=== PATIENT | female | born 1990 | race Caucasian/White ===

== ENCOUNTER 2017-01-23 10:36 | Emergency (ER) | payer OTHER ==
--- NOTE | 2017-01-23 11:19 | EDPHY ---
HPI/HX/ROS/PE/MDM Narrative: CHIEF COMPLAINT: Vomiting, abdominal pain. HPI: The patient is a 26-year-old female with a history of cyclic vomiting syndrome who presents with vomiting since 0700 this morning. She admits associated non-radiating LLQ pain. The pain is severe in nature. The symptoms are similar to her previous episodes of cyclic vomiting. She denies fever, diarrhea, or other complaints. She has been treated successfully in the past with Haldol. REVIEW OF SYSTEMS: Aside from elements discussed in the HPI, a comprehensive 10-point review of systems was reviewed and is negative. PMH: Tonsillectomy, arm fracture. SOCIAL HISTORY: Here with mother. PHYSICAL EXAM: General: Patient is alert, writhing around on bed. ENT: Eyes are normal to inspection. ENT inspection normal. Neck: Normal inspection. Full range of motion. Respiratory: No respiratory distress. Breath sounds normal bilaterally. Cardiovascular: Regular rate and rhythm. Strong peripheral pulses. Abdomen: Diffuse abdominal tenderness, uncooperative on exam. There are no peritoneal signs. There are normal bowel sounds. Back: Normal to inspection. No tenderness to palpation. Skin: Normal color. No rash. Warm and dry. Extremities: Normal appearance. Full range of motion. Neuro: Oriented x3. Normal motor function. Normal sensory function. Portions of this note were transcribed by an ED scribe. I personally performed the history, physical exam, and medical decision making; and confirm the accuracy of the information in the transcribed note. ED Course: 26-year-old female with a history of cyclic vomiting presents with vomiting and LLQ abdominal pain since 0700 this morning. She has no fever, diarrhea, or other complaints. Vitals are stable. An IV was established and labs ordered. On exam she is diffusely tender but is uncooperative and writhing around on the bed. Abdomen/pelvis CT ordered. 1L IV saline, 4mg IV Zofran, .5mg IV Dilaudid, 5mg IV Haldol administered. WBC elevated at 13.71. 1405: Reassessed patient. Discussed results of workup. She is feeling much better and her pain is gone. She has declined pelvic ultrasound. I feel she is safe for discharge at this time. She has been given gastroenterology follow up. MDM: This patient presents with severe vomiting and abdominal pain in the setting of what appears to be likely cyclical vomiting syndrome, although the patient has not received a formal diagnosis of this. We performed an extensive workup including lab work and CT scan of the abdomen and pelvis, which are essentially negative for acute findings other than some mild neuritis. I see no evidence of appendicitis, diverticulitis, bowel obstruction, bowel perforation. The patient is not . The patient was treated with IV fluids, pain medicine and IV Haldol. On re-evaluation, she states her pain is gone and she feels much better. I discussed testing with her and her mother and she is comfortable with the plan to refuse further testing including pelvic ultrasound and to go home. I strongly encouraged them to follow up with a adobe maker and have given them a referral to do so. We discussed strict return precautions. - Data Points Imaging Results: Imaging Impressions Abdomen CT 01/23/17 12:12 Impression: 1. Apparent wall thickening of jejunum with mild mesenteric stranding most likely related to enteritis. 2. Bladder wall thickening likely related to underdistention. 3. Additional findings as above. Findings discussed with Judah Rao MD 01/23/2017 at 1317 hours. Laboratory Results: Laboratory Results 01/23/17 11:00 01/23/17 11:00 01/23/17 01/23/17 01/23/17 11:00 11:00 11:00 WBC 13.71 10^3/uL H 10^3/uL (3.80-9.50) RBC 4.94 10^6/uL 10^6/uL (4.18-5.33) Hgb 14.5 g/dL g/dL (12.6-16.3) Hct 42.8 % % (38.0-47.0) MCV 86.6 fL fL (81.5-99.8) MCH 29.4 pg pg (27.9-34.1) MCHC 33.9 g/dL g/dL (32.4-36.7) RDW 12.3 % % (11.5-15.2) Plt Count 215 10^3/uL 10^3/uL (150-400) MPV 11.6 fL fL (8.7-11.7) Neut % (Auto) 89.8 % H % (39.3-74.2) Lymph % (Auto) 5.1 % L % (15.0-45.0) Mcmullen % (Auto) 3.8 % L % (4.5-13.0) Eos % (Auto) 0.7 % % (0.6-7.6) Baso % (Auto) 0.2 % L % (0.3-1.7) Nucleat RBC Rel Count 0.0 % % (0.0-0.2) Absolute Neuts (auto) 12.31 10^3/uL H 10^3/uL (1.70-6.50) Absolute Lymphs (auto) 0.70 10^3/uL L 10^3/uL (1.00-3.00) Absolute Monos (auto) 0.52 10^3/uL 10^3/uL (0.30-0.80) Absolute Eos (auto) 0.09 10^3/uL 10^3/uL (0.03-0.40) Absolute Basos (auto) 0.03 10^3/uL 10^3/uL (0.02-0.10) Absolute Nucleated RBC 0.00 10^3/uL 10^3/uL (0-0.01) Immature Gran % 0.4 % % (0.0-1.1) Immature Gran # 0.06 10^3/uL 10^3/uL (0.00-0.10) Sodium 142 mEq/L mEq/L (134-144) Potassium 4.1 mEq/L mEq/L (3.5-5.2) Chloride 108 mEq/L mEq/L (97-110) Carbon Dioxide 21 mEq/l L mEq/l (22-31) Anion Gap 13 mEq/L mEq/L (8-16) BUN 12 mg/dL mg/dL (7-23) Creatinine 0.8 mg/dL mg/dL (0.6-1.0) Estimated GFR > 60 Glucose 115 mg/dL H mg/dL (70-100) Calcium 9.7 mg/dL mg/dL (8.5-10.4) Total Bilirubin 0.6 mg/dL mg/dL (0.1-1.4) Conjugated Bilirubin 0.4 mg/dL mg/dL (0.0-0.5) Unconjugated Bilirubin 0.2 mg/dL mg/dL (0.0-1.1) AST 71 IU/L H IU/L (14-46) ALT 45 IU/L IU/L (9-52) Alkaline Phosphatase 58 IU/L IU/L (38-126) Total Protein 7.5 g/dL g/dL (6.3-8.2) Albumin 4.7 g/dL g/dL (3.5-5.0) Lipase 251.0 IU/L IU/L (23-300) Beta HCG, Qual NEGATIVE Medications Given: Discontinued Medications Haloperidol Lactate (Haldol Injection) 5 mg IV EDNOW ONE Stop: 01/23/17 11:56 Last Admin: 01/23/17 12:02 Dose: 5 mg Hydromorphone HCl (Dilaudid) 0.5 mg IVP EDNOW ONE Stop: 01/23/17 12:13 Last Admin: 01/23/17 12:33 Dose: 0.5 mg Sodium Chloride (Ns) 1,000 mls @ 0 mls/hr IV ONCE ONE PRN Reason: Wide Open Stop: 01/23/17 12:05 Last Admin: 01/23/17 12:05 Dose: 1,000 mls Ondansetron HCl (Zofran) 4 mg IVP EDNOW ONE Stop: 01/23/17 12:04 Last Admin: 01/23/17 12:05 Dose: 4 mg General Time Seen by Provider: 01/23/17 11:18 Initial Vital Signs: Initial Vital Signs Temperature (C) 36.7 C 01/23/17 10:42 Heart Rate 65 01/23/17 10:42 Respiratory Rate 18 01/23/17 10:42 Blood Pressure 131/76 H 01/23/17 10:42 O2 Sat (%) 97 01/23/17 10:42 O2 Delivery Mode Room Air Allergies/Adverse Reactions: cefaclor [From [facility]] Allergy (Verified 01/23/17 10:41) Sulfa (Sulfonamide Antibiotics) Allergy (Verified 01/23/17 10:41) Home Medications: Medication Instructions Recorded [facility] 07/04/16 Ondansetron Odt [Zofran Odt] 4 mg PO Q6-8PRN PRN #6 tab 07/05/16 Departure - Departure Disposition: Home, Routine, Self-Care Clinical Impression: Nausea and vomiting Qualifiers: Vomiting type: cyclical vomiting Vomiting Intractability: non-intractable Qualified Code(s): G43.A0 - Cyclical vomiting, not intractable Abdominal pain Qualifiers: Abdominal location: left lower quadrant Qualified Code(s): R10.32 - Left lower quadrant pain Condition: Good Instructions: Acute Nausea and Vomiting (ED), Abdominal Pain (ED) Additional Instructions: Call Dr. Escalona, gastroenterology, today to set up a follow up appointment. Drink only clear fluids for the next 24 hours. Advance diet slowly as tolerable. Return to the emergency department for any serious worsening of condition. Referrals: Sam Escalona MD [[facility] Primary Care Provider] - As per Instructions ALBERTA CURTIS [Primary Care Provider] - As per Instructions Report Scribed for: Judah Rao Report Scribed by: Fili Duran Date of Report: 01/23/17 Time of Report: 11:19
[2017-01-23 11:24] LABS: % IMMATURE GRANULYOCYTES 0.4 % (0.0-1.1); ABSOLUTE IMMATURE GRANULOCYTES 0.06 10^3/uL (0.00-0.10); ADD DIFF? NO; ADD MORPH? NO; ADD SCAN? NO; ATYPICAL LYMPHOCYTE FLAG 0 (0-99); FRAGMENT RBC FLAG 0 (0-99); HEMATOCRIT 42.8 % (38.0-47.0); HEMOGLOBIN 14.5 g/dL (12.6-16.3); LEFT SHIFT FLG 0 (0-99); LIPEMIA HEMOLYSIS FLAG 90 (0-99); MEAN CELL HEMOGLOBIN 29.4 pg (27.9-34.1); MEAN CELL HEMOGLOBIN CONCENTR. 33.9 g/dL (32.4-36.7); MEAN CELL VOLUME 86.6 fL (81.5-99.8); MEAN PLATELET VOLUME 11.6 fL (8.7-11.7); PLATELET CLUMPS FLAG 0 (0-99); PLATELET COUNT 215 10^3/uL (150-400); RED BLOOD CELL COUNT 4.94 10^6/uL (4.18-5.33); RED CELL DISTRIBUTION WIDTH 12.3 % (11.5-15.2)
[2017-01-23 11:34] LABS: ALANINE AMINOTRANSFERASE 45 IU/L (9-52); ALBUMIN 4.7 g/dL (3.5-5.0); ALKALINE PHOSPHATASE 58 IU/L (38-126); ANION GAP 13 mEq/L (8-16); ASPARTATE AMINOTRANSFERASE 71 IU/L (14-46); BILIRUBIN,TOTAL 0.6 mg/dL (0.1-1.4); BILIRUBIN-CONJUGATED 0.4 mg/dL (0.0-0.5); BILIRUBIN-UNCONJUGATED 0.2 mg/dL (0.0-1.1); CALCIUM 9.7 mg/dL (8.5-10.4); CARBON DIOXIDE 21 mEq/l (22-31); CHLORIDE 108 mEq/L (97-110); CREATININE 0.8 mg/dL (0.6-1.0); GLOMERULAR FILTRATION RATE > 60; GLUCOSE 115 mg/dL (70-100); POTASSIUM 4.1 mEq/L (3.5-5.2); SODIUM 142 mEq/L (134-144); TOTAL PROTEIN 7.5 g/dL (6.3-8.2)
[2017-01-23] MEDS ORDERED: ONDANSETRON 4 MG/2 ML VIAL ONE (11:43)
[2017-01-23] MEDS ORDERED: HALOPERIDOL LACT 5 MG/ML INJ IV ONE (11:55)
[2017-01-23] MEDS ORDERED: ONDANSETRON 4 MG/2 ML VIAL IVP ONE (12:03)
[2017-01-23] MEDS ORDERED: NS 1,000 ML IV ONE (12:04)
[2017-01-23 12:05] VITALS: TEMP 98.2
[2017-01-23] MEDS ORDERED: HYDROmorphONE/DILAUDID 1 MG/ML SYR IVP ONE (12:12)
[2017-01-23] MEDS ORDERED: IOPAMIDOL (ISOVUE-300) 100 ML BTL IV ONE (12:35)
[2017-01-23 14:33] VITALS: BP 95/67; PULSE 74; RESP 18; O2SAT 95
== END 2017-01-23 14:35 | disposition home or self-care (01) ==
DX: R10.32 Left lower quadrant pain (principal); G43.A0 Cyclical vomiting, in migraine, not intractable
CPT/HCPCS: 96374; J1170; J2405; Q9967

== ENCOUNTER 2017-03-17 17:46 | Emergency (ER) | payer OTHER ==
[2017-03-17 17:52] VITALS: RESP 16
[2017-03-17] MEDS ORDERED: ONDANSETRON 4 MG/2 ML VIAL ONE (18:21)
[2017-03-17] MEDS ORDERED: ONDANSETRON 4 MG/2 ML VIAL IVP ONE (18:27)
[2017-03-17] MEDS ORDERED: NS 1,000 ML IV ONE (18:27)
[2017-03-17 18:32] LABS: % IMMATURE GRANULYOCYTES 0.6 % (0.0-1.1); ABSOLUTE IMMATURE GRANULOCYTES 0.11 10^3/uL (0.00-0.10); ADD DIFF? NO; ADD MORPH? NO; ADD SCAN? NO; ATYPICAL LYMPHOCYTE FLAG 0 (0-99); FRAGMENT RBC FLAG 0 (0-99); HEMATOCRIT 45.4 % (38.0-47.0); LEFT SHIFT FLG 0 (0-99); LIPEMIA HEMOLYSIS FLAG 80 (0-99); MEAN CELL HEMOGLOBIN 29.4 pg (27.9-34.1); MEAN CELL VOLUME 88.8 fL (81.5-99.8); MEAN PLATELET VOLUME 11.4 fL (8.7-11.7); PLATELET CLUMPS FLAG 0 (0-99); PLATELET COUNT 279 10^3/uL (150-400); RED BLOOD CELL COUNT 5.11 10^6/uL (4.18-5.33); RED CELL DISTRIBUTION WIDTH 13.1 % (11.5-15.2)
[2017-03-17] MEDS ORDERED: HALOPERIDOL LACT 5 MG/ML INJ IVP ONE (18:39)
--- NOTE | 2017-03-17 18:39 | EDPHY ---
HPI/HX/ROS/PE/MDM Narrative: CHIEF COMPLAINT: Nausea, vomiting. HISTORY OF PRESENT ILLNESS: The patient is a 26-year-old female with history of cyclic vomiting, presenting with nausea and vomiting that started last night. She grilled steak and vegetables yesterday evening and began vomiting after eating. Her friend who ate the same food did not vomit. Patient has continued to vomit since yesterday evening. She has not been able to keep down food or fluids. She took Zofran around 9:30 a.m. this morning and was able to go back to sleep without vomting. After waking up and trying to eat symptoms resurfaced. Patient has associated abdominal cramping. She developed diarrhea as well today. The patient continues to smoke marijuana daily. No fever, chills , chest pain, shortness of breath, palpitations, urinary complaints, headache, lightheadedness. LMP was a few days ago. Patient is not on any form of control. REVIEW OF SYSTEMS: Aside from elements discussed in the HPI, a comprehensive 10-point review of systems was reviewed and is negative. PAST MEDICAL HISTORY: Cyclic vomiting. SOCIAL HISTORY: Marijuana use. Alcohol use. VITAL SIGNS: Reviewed by me GENERAL: Well-developed, well-nourished, resting comfortably in no respiratory distress. HEENT: Atraumatic. Eyes: No icterus, no injection. Mouth: moist mucous membranes. No erythema or lesions. Neck: supple with no adenopathy. LUNGS: Clear to auscultation bilaterally, no wheezes, rhonchi or rales. CARDIAC: Regular rate and rhythm, no rubs, murmurs or gallops. ABDOMEN: Soft, left lower quadrant tenderness BACK: No CVA tenderness. EXTREMITIES: No trauma. No edema. Range of motion is normal throughout. NEURO: Alert and oriented, grossly nonfocal. SKIN: Warm and dry, no rash. PSYCHIATRIC: Normal mentation, no agitation. Portions of this note were transcribed by a medical support assistant. I personally performed a history, physical exam, medical decision making, and confirmed accuracy of information the transcribed note. ED Course: Patient with history of possible cyclic vomiting related to MJ use, presents with 24 hours of nausea and vomiting. Patient received 1L IV fluids and 4mg Zofran. She has not vomited in the ED. Plan to treat abdominal pain with IV Benadryl, Reglan, and Haldol. I ordered lab work. Plan to reevaluate patient after medications. CBC notable for elevated WBC at 19, and CO2 of 15. Patient underwent CT scanning to evaluate for intraabdominal causes of severe dehydration and leukocytosis. CT abdomen/pelvis is normal except for ovarian cyst. Patient much improved following 2 liters of NS. Tolerating juice. Will dc with phenergan. Advised regarding ongoing marijuana use and possible hyperemesis related to marijuana. MDM: Diff dx of patient nausea and vomiting considered including cyclic vomiting, cannibus hyperemesis syndrome, viral infection, electrolyte abnormalities, gastritis, gastroenteritis, colitis, enteritis, , infection, bowel obstruction. - Data Points Imaging: Discussed imaging studies w/ nut process helper Radiologist Laboratory Results: Laboratory Results 03/17/17 18:25 03/17/17 18:25 Medications Given: Discontinued Medications Diphenhydramine HCl (Benadryl Injection) 25 mg IVP EDNOW ONE Stop: 03/17/17 18:46 Last Admin: 03/17/17 19:10 Dose: 25 mg Haloperidol Lactate (Haldol Injection) 2.5 mg IVP EDNOW ONE Stop: 03/17/17 18:40 Last Admin: 03/17/17 19:10 Dose: 2.5 mg Sodium Chloride (Ns) 1,000 mls @ 0 mls/hr IV ONCE ONE PRN Reason: Wide Open Stop: 03/17/17 18:28 Last Admin: 03/17/17 18:27 Dose: 1,000 mls Metoclopramide HCl (Reglan Injection) 10 mg IVP EDNOW ONE Stop: 03/17/17 18:46 Last Admin: 03/17/17 19:10 Dose: 10 mg Ondansetron HCl (Zofran) 4 mg IVP EDNOW ONE Stop: 03/17/17 18:28 Last Admin: 03/17/17 18:28 Dose: 4 mg General Time Seen by Provider: 03/17/17 18:36 Initial Vital Signs: Initial Vital Signs Temperature (C) 36.9 C 03/17/17 17:49 Heart Rate 82 03/17/17 17:49 Respiratory Rate 16 03/17/17 17:49 Blood Pressure 106/78 03/17/17 17:49 O2 Sat (%) 97 03/17/17 17:49 O2 Delivery Mode Nasal Cannula O2 (L/minute) 2 Allergies/Adverse Reactions: cefaclor [From [facility]] Allergy (Verified 01/23/17 10:41) Sulfa (Sulfonamide Antibiotics) Allergy (Verified 01/23/17 10:41) Home Medications: Medication Instructions Recorded [facility] 07/04/16 Ondansetron Odt [Zofran Odt] 4 mg PO Q6-8PRN PRN #6 tab 07/05/16 Promethazine HCl [Phenergan 12.5mg 12.5 mg PO Q8 PRN #10 tablet 03/17/17 tab] Departure - Departure Disposition: Home, Routine, Self-Care Clinical Impression: Nausea and vomiting Qualifiers: Vomiting type: unspecified Vomiting Intractability: non-intractable Qualified Code(s): R11.2 - Nausea with vomiting, unspecified Condition: Good Instructions: Acute Nausea and Vomiting (ED) Additional Instructions: For your vomiting, I suggested you start with a bland diet and advance as tolerated. This means start with clear liquids such as water, Gatorade, juice, flat non- caffeinated soda. If you tolerate clear liquids, then you may add bland foods such as bananas, rice, or toast. If you do not have any worsening of your symptoms, you may begin to resume a regular diet. Take Phenergan as directed for recurrent nausea and vomiting. Referrals: ALBERTA CURTIS [Primary Care Provider] - As per Instructions Prescriptions: Promethazine HCl [Phenergan 12.5mg tab] 12.5 mg PO Q8 PRN #10 tablet PRN Reason: nausea vomiting Report Scribed for: Isabelle Aviles Report Scribed by: Dianne Ochoa Date of Report: 03/17/17 Time of Report: 18:50
[2017-03-17] MEDS ORDERED: METOCLOPRAMIDE 10 MG/2 ML VIAL IVP ONE (18:45)
[2017-03-17 19:01] LABS: ALANINE AMINOTRANSFERASE 42 IU/L (9-52); ALBUMIN 5.5 g/dL (3.5-5.0); ALKALINE PHOSPHATASE 59 IU/L (38-126); ANION GAP 21 mEq/L (8-16); ASPARTATE AMINOTRANSFERASE 35 IU/L (14-46); BILIRUBIN,TOTAL 0.8 mg/dL (0.1-1.4); BILIRUBIN-CONJUGATED 0.2 mg/dL (0.0-0.5); BILIRUBIN-UNCONJUGATED 0.6 mg/dL (0.0-1.1); CALCIUM 10.4 mg/dL (8.5-10.4); CARBON DIOXIDE 15 mEq/l (22-31); CHLORIDE 103 mEq/L (97-110); CREATININE 0.8 mg/dL (0.6-1.0); GLOMERULAR FILTRATION RATE > 60; GLUCOSE 82 mg/dL (70-100); POTASSIUM 4.1 mEq/L (3.5-5.2); SODIUM 139 mEq/L (134-144); TOTAL PROTEIN 8.5 g/dL (6.3-8.2)
[2017-03-17 19:47] LABS: ETHANOL SERUM < 10 mg/dL (0-10)
[2017-03-17] MEDS ORDERED: IOPAMIDOL (ISOVUE-300) 100 ML BTL ONE (19:48)
[2017-03-17 20:22] VITALS: BP 104/59; PULSE 90; O2SAT 98
[2017-03-17 20:57] VITALS: TEMP 98.8
== END 2017-03-17 20:57 | disposition home or self-care (01) ==
DX: R11.2 Nausea with vomiting, unspecified (principal)
CPT/HCPCS: 96374; G0480; J1200; J2405; J2765; Q9967

== ENCOUNTER 2017-04-18 14:23 | Emergency (ER) | payer OTHER, MEDICAID ==
[2017-04-18] MEDS ORDERED: HALOPERIDOL LACT 5 MG/ML INJ IVP ONE (16:06)
[2017-04-18] MEDS ORDERED: LORazepam 2 MG/ML INJ IVP ONE (16:07)
[2017-04-18] MEDS ORDERED: NS 1,000 ML IV ONE (16:07)
[2017-04-18] MEDS ORDERED: METOCLOPRAMIDE 10 MG/2 ML VIAL IVP ONE (16:07)
--- NOTE | 2017-04-18 16:12 | EDPHY ---
H & P Stated Complaint: N,V,D Time Seen by Provider: 04/18/17 15:44 HPI/ROS: CHIEF COMPLAINT: nausea vomiting diarrhea HISTORY OF PRESENT ILLNESS: 26-year-old female in the ER via private vehicle, history of cyclic vomiting syndrome, complaining of nausea, vomiting. Coworkers have been experiencing gastroenteritis like symptoms. She has been evaluated in the ER for similar in the past. she has also been experiencing loose stools with no melena or hematochezia. Non purulent diarrhea. No fever or chills. No abdominal trauma. She was last seen emergency department approximately 1 month ago . Has been given GI follow-up information however has never seen a trailer rental clerk. PRIMARY CARE PROVIDER: Dr. Odilia mensah REVIEW OF SYSTEMS: A ten point review of systems was performed and is negative with the exception of the items mentioned in the HPI PAST MEDICAL & SURGICAL HISTORY: Cyclic vomiting syndrome. SOCIAL HISTORY: Regular marijuana use. PHYSICAL EXAM Physical examination not performed at initial encounter with the patient as she was retching I would not allow me to exam her. Physical examination subsequently performed at 4:40 p.m. at which point the patient was sleeping but easily woken asymptomatic. (Prior to examination, patient consented to physical exam, hands were washed and my usual and customary physical exam procedures followed) 1) GENERAL: Well-developed, well-nourished, alert and oriented. Appears uncomfortable, heard audibly retching 2) HEAD: Normocephalic, atraumatic 3) HEENT: Pupils equal, round, reactive to light bilaterally. Sclera anicteric. Nasopharynx, oropharynx, clear, no lesions. Moist 4) NECK: Full range of motion, no meningeal signs. 5) LUNGS: Clear auscultation bilaterally, no wheezes, no rhonchi, no retractions. 6) HEART: Regular rate and rhythm, no murmur, no heave, no gallop. 7) ABDOMEN: No guarding, no rebound, no focal tenderness, negative McBurney's, negative García's, negative Rovsing's, negative peritoneal sign, I am unable to elicit any abdominal pain on exam 8) MUSCULOSKELETAL: Moving all extremities, no focal areas of tenderness, no obvious trauma. No peripheral edema or discoloration. 9) BACK: No CVA tenderness. 10) SKIN: No rash, no petechiae. 11) Psychiatric: Patient is oriented X 3, there is no agitation. DIFFERENTIAL DIAGNOSIS: [ My differential diagnosis includes, but is not limited to, acute appendicitis, acute cholecystitis, bowel obstruction, acute pancreatitis, ovarian torsion, ectopic , gastritis , cyclic vomiting syndrome, cannabis hyperemesis syndrome, . The patient understands that this diagnosis is provisional and can never be 100% accurate. This is a partial list of diagnoses considered. These considerations are based on history, physical exam, past history and reassessment. - Personal History LMP (Females 10-55): 8-14 Days Ago Current Tetanus/Diphtheria Vaccine: Yes - Medical/Surgical History Hx Asthma: No Hx Chronic Respiratory Disease: No Hx Diabetes: No Hx Cardiac Disease: No Hx Renal Disease: No Hx Cirrhosis: No Hx Alcoholism: No Hx HIV/AIDS: No Hx Splenectomy or Spleen Trauma: No Other PMH: tonsillectomy, JUN arm fx, tubes in ears, dental surgery - Social History Smoking Status: Never smoked Constitutional: Initial Vital Signs Temperature (C) 36.8 C 04/18/17 14:27 Heart Rate 65 04/18/17 14:27 Respiratory Rate 18 04/18/17 14:27 Blood Pressure 134/81 H 04/18/17 14:27 O2 Sat (%) 96 04/18/17 14:27 O2 Delivery Mode Room Air Allergies/Adverse Reactions: cefaclor [From Ceclor] Allergy (Verified 01/23/17 10:41) Sulfa (Sulfonamide Antibiotics) Allergy (Verified 01/23/17 10:41) Home Medications: Medication Instructions Recorded Promethazine HCl [Phenergan 12.5mg 12.5 mg PO Q8 PRN #10 tablet 03/17/17 tab] Ondansetron Odt [Zofran Odt] 4 mg PO Q4PRN PRN #10 tab 04/18/17 Medical Decision Making ED Course/Re-evaluation: 4:40 p.m.: Re-evaluation after IV Haldol, regular a.m., Benadryl, Ativan and IV fluids. She is sleeping, states that she is asymptomatic. Abdomen examined soft no guarding no rebound no McBurney's point pain. I think that acute surgical abdominal pathology such as acute appendicitis is less than likely in this patient. Plan will be oral fluid challenge and she is able tolerate this plan will be discharge home and encourage the patient to follow up with Gastroenterology. She already has this referral information. Usual and customary abdominal precautions provided. - Data Points Laboratory Results: Laboratory Results 04/18/17 16:04 04/18/17 16:04 04/18/17 04/18/17 04/18/17 16:04 16:04 16:04 WBC 11.93 10^3/uL H 10^3/uL (3.80-9.50) RBC 4.99 10^6/uL 10^6/uL (4.18-5.33) Hgb 14.7 g/dL g/dL (12.6-16.3) Hct 43.7 % % (38.0-47.0) MCV 87.6 fL fL (81.5-99.8) MCH 29.5 pg pg (27.9-34.1) MCHC 33.6 g/dL g/dL (32.4-36.7) RDW 12.8 % % (11.5-15.2) Plt Count 242 10^3/uL 10^3/uL (150-400) MPV 11.3 fL fL (8.7-11.7) Neut % (Auto) 90.7 % H % (39.3-74.2) Lymph % (Auto) 6.5 % L % (15.0-45.0) Pepin % (Auto) 2.2 % L % (4.5-13.0) Eos % (Auto) 0.0 % L % (0.6-7.6) Baso % (Auto) 0.3 % % (0.3-1.7) Nucleat RBC Rel Count 0.0 % % (0.0-0.2) Absolute Neuts (auto) 10.81 10^3/uL H 10^3/uL (1.70-6.50) Absolute Lymphs (auto) 0.78 10^3/uL L 10^3/uL (1.00-3.00) Absolute Monos (auto) 0.26 10^3/uL L 10^3/uL (0.30-0.80) Absolute Eos (auto) 0.00 10^3/uL L 10^3/uL (0.03-0.40) Absolute Basos (auto) 0.04 10^3/uL 10^3/uL (0.02-0.10) Absolute Nucleated RBC 0.00 10^3/uL 10^3/uL (0-0.01) Immature Gran % 0.3 % % (0.0-1.1) Immature Gran # 0.04 10^3/uL 10^3/uL (0.00-0.10) Sodium 142 mEq/L mEq/L (134-144) Potassium 4.2 mEq/L mEq/L (3.5-5.2) Chloride 109 mEq/L mEq/L (97-110) Carbon Dioxide 14 mEq/l L mEq/l (22-31) Anion Gap 19 mEq/L H mEq/L (8-16) BUN 13 mg/dL mg/dL (7-23) Creatinine 0.8 mg/dL mg/dL (0.6-1.0) Estimated GFR > 60 Glucose 106 mg/dL H mg/dL (70-100) Calcium 10.4 mg/dL mg/dL (8.5-10.4) Total Bilirubin 0.9 mg/dL mg/dL (0.1-1.4) Conjugated Bilirubin 0.4 mg/dL mg/dL (0.0-0.5) Unconjugated Bilirubin 0.5 mg/dL mg/dL (0.0-1.1) AST 38 IU/L IU/L (14-46) ALT 44 IU/L IU/L (9-52) Alkaline Phosphatase 50 IU/L IU/L (38-126) Total Protein 8.1 g/dL g/dL (6.3-8.2) Albumin 5.2 g/dL H g/dL (3.5-5.0) Lipase 87.0 IU/L IU/L (23-300) Beta HCG, Qual NEGATIVE Medications Given: Discontinued Medications Diphenhydramine HCl (Benadryl Injection) 25 mg IVP EDNOW ONE Stop: 04/18/17 16:08 Last Admin: 04/18/17 16:35 Dose: 25 mg Haloperidol Lactate (Haldol Injection) 2.5 mg IVP EDNOW ONE Stop: 04/18/17 16:07 Last Admin: 04/18/17 16:35 Dose: 2.5 mg Sodium Chloride (Ns) 1,000 mls @ 0 mls/hr IV ONCE ONE PRN Reason: Wide Open Stop: 04/18/17 16:08 Last Admin: 04/18/17 16:08 Dose: 1,000 mls Lorazepam (Ativan Injection) 1 mg IVP EDNOW ONE Stop: 04/18/17 16:08 Last Admin: 04/18/17 16:35 Dose: 1 mg Metoclopramide HCl (Reglan Injection) 10 mg IVP EDNOW ONE Stop: 04/18/17 16:08 Last Admin: 04/18/17 16:35 Dose: 10 mg Departure - Departure Disposition: Home, Routine, Self-Care Clinical Impression: Nausea and vomiting Qualifiers: Vomiting type: unspecified Vomiting Intractability: non-intractable Qualified Code(s): R11.2 - Nausea with vomiting, unspecified Condition: Good Instructions: Acute Nausea and Vomiting (ED) Additional Instructions: Return to the ER immediately if you develop new or worsening symptoms, if you are unable to keep food or fluid down or any other symptoms that concern you. Referrals: Marcello Bermudez MD, FACG [Medical Doctor] - 2-3 days, call for appt. (Dr. Marcello eBrmudez is a trailer rental clerk) Prescriptions: Ondansetron Odt [Zofran Odt] 4 mg PO Q4PRN PRN #10 tab PRN Reason: Nausea
[2017-04-18 16:15] LABS: % IMMATURE GRANULYOCYTES 0.3 % (0.0-1.1); ABSOLUTE IMMATURE GRANULOCYTES 0.04 10^3/uL (0.00-0.10); ADD DIFF? NO; ADD MORPH? NO; ADD SCAN? NO; ATYPICAL LYMPHOCYTE FLAG 0 (0-99); FRAGMENT RBC FLAG 0 (0-99); HEMATOCRIT 43.7 % (38.0-47.0); HEMOGLOBIN 14.7 g/dL (12.6-16.3); LEFT SHIFT FLG 10 (0-99); LIPEMIA HEMOLYSIS FLAG 80 (0-99); MEAN CELL HEMOGLOBIN 29.5 pg (27.9-34.1); MEAN CELL HEMOGLOBIN CONCENTR. 33.6 g/dL (32.4-36.7); MEAN CELL VOLUME 87.6 fL (81.5-99.8); MEAN PLATELET VOLUME 11.3 fL (8.7-11.7); PLATELET CLUMPS FLAG 10 (0-99); PLATELET COUNT 242 10^3/uL (150-400); RED BLOOD CELL COUNT 4.99 10^6/uL (4.18-5.33); RED CELL DISTRIBUTION WIDTH 12.8 % (11.5-15.2)
[2017-04-18 17:00] LABS: ALANINE AMINOTRANSFERASE 44 IU/L (9-52); ALBUMIN 5.2 g/dL (3.5-5.0); ALKALINE PHOSPHATASE 50 IU/L (38-126); ANION GAP 19 mEq/L (8-16); ASPARTATE AMINOTRANSFERASE 38 IU/L (14-46); BILIRUBIN,TOTAL 0.9 mg/dL (0.1-1.4); BILIRUBIN-CONJUGATED 0.4 mg/dL (0.0-0.5); BILIRUBIN-UNCONJUGATED 0.5 mg/dL (0.0-1.1); CALCIUM 10.4 mg/dL (8.5-10.4); CARBON DIOXIDE 14 mEq/l (22-31); CHLORIDE 109 mEq/L (97-110); CREATININE 0.8 mg/dL (0.6-1.0); GLOMERULAR FILTRATION RATE > 60; GLUCOSE 106 mg/dL (70-100); POTASSIUM 4.2 mEq/L (3.5-5.2); SODIUM 142 mEq/L (134-144); TOTAL PROTEIN 8.1 g/dL (6.3-8.2)
[2017-04-18 17:59] VITALS: RESP 16
[2017-04-18 19:38] VITALS: BP 110/68; PULSE 76; TEMP 99; O2SAT 94
== END 2017-04-18 20:07 | disposition home or self-care (01) ==
DX: R11.2 Nausea with vomiting, unspecified (principal)
CPT/HCPCS: 96374; J1200; J2060; J2765